=== PATIENT | male | born 1970 | race Caucasian/White ===

== ENCOUNTER 2018-12-06 18:59 | Emergency (ER) | payer BC ==
--- NOTE | 2018-12-06 19:45 | ED Physician Chart ---
ED Chief Complaint/HPI - Patient Information Date Seen:: 12/06/18 Time Seen:: 19:30 Chief Complaint:: neck pain History of Present Illness:: Patient awoke two days ago with occipital and neck pain. No chills, fever, vomiting. Headache is only occipital. Patient worried about having meningitis as he is fllying [place] in one half days. Patient saw his physician today who said he could not definitely rule out meningitis. Allergies:: Allergies Allergy/AdvReac Type Severity Reaction Status Date / Time No Known Allergies Allergy Verified 12/06/18 19:06 Vitals:: Vital Signs - 8 hr 12/06/18 12/06/18 19:07 19:33 Temp 93 F 98.0 F HR 75 RR 18 O2 Sat % 93 Historian:: Patient Review:: Nurse's Note Reviewed ED Review of Systems - Review of Systems General/Constitutional: No fever, No chills, No weight loss Skin: No skin lesions Head: Headache Eyes: No loss of vision ENT: No earache Neck: Neck pain Cardio Vascular: No chest pain Pulmonary: No SOB GI: No nausea, No vomiting, No diarrhea G/U: No dysuria Musculoskeletal: Muscle pain Psychiatric: No prior psych history Hematopoietic: No bruising Allergic/Immuno: No urticaria Neurological: No syncope ED Past Medical History - Past Medical History Past Medical History: No significant medical hx Family History: None Social History: Non Smoker, No Alcohol Surgical History: other (left shoulder) Psychiatricy History: None Medication: None Family Medical History - Family Member Mother History Unknown: Yes ED Physical Exam - Physical Examination General/Constitutional: Awake, Well-developed, well-nourished, Alert, No distress Head: Atraumatic Eyes: Lids, conjuctiva normal, PERRL Skin: Nl inspection, No rash ENMT: External ears, nose nl, Nasal exam nl, Lips, teeth, gums nl, Oropharynx nl , Tonsils nl Other ENMT comments:: Bilateral partial ceruminosis Neck: No nuchal rigidity Other Neck comments:: Range of motion of the neck: 90 forward flexion; 75 extension; 80 rotation; 40 lateral flexion Respiratory: Nl effort/Exclusion, Clear to Auscultation Cardio Vascular: RRR, No murmur, gallop, rubs, NL S1 S2 GI: No tenderness/rebounding/guarding Extremities: No tenderness or effusion, Normal digits & nails Neuro/Psych: Judgement/insight normal, No focal deficits ED Assessment - Assessment General Assessment: Patient is normally alert and looks well; chance of meningitis is extremely remote ED Septic Shock - . Is Septic Shock (SBP<90, OR Lactate>4 mmol\L) present?: No - <6hrs of presentation: Vital Signs: Vital Signs - 8 hr 12/06/18 12/06/18 19:07 19:33 Temp 93 F 98.0 F HR 75 RR 18 O2 Sat % 93 ED Reassessment (Disposition) - Reassessment Reassessment Condition:: Unchanged - Diagnosis Diagnosis:: Musculoskeletal neck pain - Aftercare/Follow up Instructions Aftercare/Follow-Up Instructions:: Refer to Discharge Instructions - Patient Disposition Discharge/Transfer:: Home Condition at Disposition:: Stable, Unchanged
== END 2018-12-06 19:54 | disposition home or self-care (01) ==
LOC: ER 18:59
DX: M54.2 Cervicalgia (principal); R51 Headache
CPT/HCPCS: Z7502